=== PATIENT | male | born 2000 | race African-American/Black ===

== ENCOUNTER 2024-01-18 01:16 | Emergency (ER) | payer SELFPAY ==
[~2024-01-18] VITALS: Ht 182.9 cm; Wt 100.2 kg
[2024-01-18 01:55] VITALS: PULSE 80; RESP 16; TEMP 99
[2024-01-18 03:00] VITALS: BP 133/81; PULSE 80; RESP 18; TEMP 99; O2SAT 99
== END 2024-01-18 03:00 | disposition home or self-care (01) ==
LOC: FSED 02:51
DX: R51.9 Headache, unspecified (principal); B34.9 Viral infection, unspecified; Z11.52 Encounter for screening for COVID-19
CPT/HCPCS: 0223U; 87400; 99282